=== PATIENT | female | born 1985 | race Asian ===

== ENCOUNTER 2021-07-29 21:57 | Inpatient (IN) | payer OTHER, SELFPAY ==
[~2021-07-29] VITALS: Ht 162.6 cm; Wt 115.7 kg
[2021-07-29] MEDS ORDERED: AMPICILLIN 2,000 MG in NACL 0.9% MINI-BAG PLUS 100 ML IV SCH (23:00)
[2021-07-29] MEDS ORDERED: CARBOPROST 250 MCG/ML AMP IM PRN (23:00)
[2021-07-29] MEDS ORDERED: ONDANSETRON 4 MG/2 ML VIAL IVP PRN (23:00)
[2021-07-29] MEDS ORDERED: OXYTOCIN 20 UNITS in LACTATED RINGERS 1,000 ML IV SCH (23:00)
[2021-07-29] MEDS ORDERED: METHYLERGONOVINE 0.2 MG/ML AMP IM PRN (23:00)
[2021-07-29] MEDS ORDERED: MORPHINE SULFATE 5 MG/ML VIAL IVP PRN (23:00)
[2021-07-29 23:22] LABS: BASOPHILS # (AUTO) 0.1 K/uL (0.00-0.22); BASOPHILS % (AUTO) 0.8 % (0.0-2.0); EOSINOPHILS # (AUTO) 0.3 K/uL (0-0.4); EOSINOPHILS % (AUTO) 1.7 % (0.0-4.0); HEMATOCRIT 41.5 % (36-48); HEMOGLOBIN 13.9 g/dL (12.0-16.0); LYMPHOCYTES # (AUTO) 2.8 K/uL (2.5-16.5); LYMPHOCYTES % (AUTO) 18.2 % (20.5-51.1); MEAN CORPUSCULAR HEMOGLOBIN 28 pg (27-31); MEAN CORPUSCULAR HGB CONC 34 g/dL (33-37); MEAN CORPUSCULAR VOLUME 84.8 fL (80-94); MONOCYTES # (AUTO) 1.2 K/uL (0.8-1.0); MONOCYTES % (AUTO) 7.9 % (1.7-9.3); NEUTROPHILS % (AUTO) 71.4 % (42.2-75.2); PLATELET COUNT (AUTO) 363 K/uL (140-450); RED BLOOD CELL COUNT(AUTO) 4.89 MIL/uL (4.20-5.40); RED CELL DISTRIBUTION WIDTH 14.5 % (11.6-13.7); WHITE BLOOD COUNT (AUTO) 15.4 K/uL (4.8-10.8)
[2021-07-29 23:24] LABS: APPEARANCE,URINE CLEAR (CLEAR); BILIRUBIN,URINE NEGATIVE (NEGATIVE); BLOOD, URINE NEGATIVE (NEGATIVE); COLOR,URINE YELLOW (YELLOW); LEUKOCYTE ESTERASE ,URINE NEGATIVE (NEGATIVE); NITRITE, URINE NEGATIVE (NEGATIVE); PH,URINE 6.5 (5.0-9.0); UGLUCOSE NEGATIVE (NEGATIVE)
[2021-07-29] MEDS: LACTATED RINGERS 1,000 ML IV SCH (23:28)
[2021-07-29] MEDS ORDERED: AMPICILLIN 2,000 MG VIAL ONE (23:29)
[2021-07-29 23:45] LABS: ALBUMIN 2.4 g/dL (3.4-5.0); ANION GAP 13.7 (8-16); CARBON DIOXIDE 23.6 mmol/L (21-32); CREATININE 0.8 mg/dL (0.6-1.3); POTASSIUM 4.3 mmol/L (3.5-5.1); TOTAL BILIRUBIN 0.2 mg/dL (0.0-1.0)
[2021-07-30 00:28] VITALS: BP 128/80
[2021-07-30] MEDS: MISOPROSTOL 25 MCG TAB VG PRN ×2 (01:57→08:10)
[2021-07-30] MEDS ORDERED: AMPICILLIN 1,000 MG VIAL ONE ×6 (03:04→23:34)
[2021-07-30] MEDS: AMPICILLIN 1,000 MG in NACL 0.9% MINI-BAG PLUS 50 ML IV SCH ×3 (03:30→23:50)
--- NOTE | 2021-07-30 07:13 | NUR ---
PATIENT HAS BEEN SCREENED AND CATEGORIZED LOW NUTRITION RISK. PATIENT WILL BE SEEN WITHIN 7 DAYS OF ADMISSION. 08/05/[address]
[2021-07-30] MEDS: LACTATED RINGERS 1,000 ML IV SCH ×3 (08:11→23:35)
[2021-07-31] MEDS: MISOPROSTOL 25 MCG TAB VG PRN ×2 (01:59→08:01)
[2021-07-31] MEDS ORDERED: AMPICILLIN 1,000 MG VIAL ONE ×6 (03:32→23:54)
[2021-07-31] MEDS: AMPICILLIN 1,000 MG in NACL 0.9% MINI-BAG PLUS 50 ML IV SCH ×2 (08:00→11:50)
[2021-07-31] MEDS ORDERED: OXYTOCIN 20 UNITS/LR PREMIX 1,000 ML IV ONE (13:45)
[2021-07-31] MEDS ORDERED: MORPHINE SULFATE 10 MG/ML VIAL ONE (21:02)
[2021-07-31 21:25] VITALS: BP 127/87
[2021-07-31] MEDS ORDERED: ROPIVACAINE 0.2%/NS PREMIX 200 ML EPI ONE (22:37)
[2021-07-31] MEDS ORDERED: ROPIVACAINE 0.2%/NS PREMIX 100 ML EPI SCH (23:05)
[2021-08-01] MEDS ORDERED: AMPICILLIN 1,000 MG VIAL ONE (03:54)
[2021-08-01] MEDS ORDERED: CITRIC ACID/SODIUM CITRATE 30 ML UDC PO SCH (07:18)
[2021-08-01] MEDS ORDERED: LIDOCAINE/EPI MPF 2%1:200000 10 ML VIAL INJ ONE ×2 (07:29→07:55)
[2021-08-01] MEDS ORDERED: MORPHINE PRES FREE 10 MG/10 ML AMP IV ONE (07:44)
[2021-08-01] MEDS ORDERED: DEXAMETHASONE 4 MG/ML VIAL ONE ×3 (07:45→08:00)
[2021-08-01] MEDS ORDERED: ONDANSETRON 4 MG/2 ML VIAL ONE ×2 (07:45→08:25)
[2021-08-01] MEDS ORDERED: METOCLOPRAMIDE 10 MG/2 ML INJ VIAL ONE ×2 (07:45→08:22)
[2021-08-01] MEDS ORDERED: OXYTOCIN 10 UNITS/ML VIAL ONE ×4 (08:00→08:21)
[2021-08-01] MEDS ORDERED: ePHEDrine 50 MG/ML VIAL ONE (08:26)
[2021-08-01] MEDS ORDERED: ONDANSETRON 4 MG/2 ML VIAL IVP PRN ×3 (08:40→08:45)
[2021-08-01] MEDS ORDERED: HYDROmorphone 2 MG TAB PO PRN (08:40)
[2021-08-01] MEDS ORDERED: METHYLERGONOVINE 0.2 MG/ML AMP IM PRN (08:40)
[2021-08-01] MEDS ORDERED: diphenhydrAMINE 50 MG/ML VIAL IVP PRN ×2 (08:40→08:45)
[2021-08-01] MEDS ORDERED: MEPERIDINE 25 MG/ML SYR IVP PRN (08:45)
[2021-08-01] MEDS ORDERED: NALOXONE 0.4 MG/ML VIAL IVP PRN ×3 (08:45)
[2021-08-01] MEDS ORDERED: NALBUPHINE 10 MG/ML AMP IVP PRN (08:45)
[2021-08-01] MEDS ORDERED: HYDROmorphone 1 MG/ML AMP IVP PRN (08:45)
[2021-08-01] MEDS ORDERED: KETOROLAC 30 MG/ML VIAL IM/IVP SCH (12:00)
[2021-08-01] MEDS: KETOROLAC 30 MG/ML VIAL IM/IVP SCH ×2 (12:39→18:03)
[2021-08-01] MEDS ORDERED: OXYTOCIN 20 UNITS/LR PREMIX 1,000 ML IV ONE ×2 (12:50→22:29)
[2021-08-01] MEDS: OXYTOCIN 20 UNITS in LACTATED RINGERS 1,000 ML IV SCH ×2 (13:54→22:32)
[2021-08-02] MEDS: KETOROLAC 30 MG/ML VIAL IM/IVP SCH (00:02)
[2021-08-02] MEDS ORDERED: OXYTOCIN 20 UNITS/LR PREMIX 1,000 ML IV ONE (06:45)
[2021-08-02] MEDS: OXYTOCIN 20 UNITS in LACTATED RINGERS 1,000 ML IV SCH (07:02)
[2021-08-02 08:48] LABS: BASOPHILS # (AUTO) 0.1 K/uL (0.00-0.22); BASOPHILS % (AUTO) 0.8 % (0.0-2.0); EOSINOPHILS # (AUTO) 0.1 K/uL (0-0.4); EOSINOPHILS % (AUTO) 0.9 % (0.0-4.0); HEMATOCRIT 26.7 % (36-48); HEMOGLOBIN 8.8 g/dL (12.0-16.0); LYMPHOCYTES # (AUTO) 3.6 K/uL (2.5-16.5); LYMPHOCYTES % (AUTO) 29.3 % (20.5-51.1); MEAN CORPUSCULAR HEMOGLOBIN 28 pg (27-31); MEAN CORPUSCULAR HGB CONC 33 g/dL (33-37); MONOCYTES # (AUTO) 1.2 K/uL (0.8-1.0); MONOCYTES % (AUTO) 9.5 % (1.7-9.3); NEUTROPHILS # (AUTO) 7.3 K/uL (1.8-7.7); NEUTROPHILS % (AUTO) 59.5 % (42.2-75.2); PLATELET COUNT (AUTO) 281 K/uL (140-450); RED BLOOD CELL COUNT(AUTO) 3.14 MIL/uL (4.20-5.40); RED CELL DISTRIBUTION WIDTH 14.2 % (11.6-13.7); WHITE BLOOD COUNT (AUTO) 12.3 K/uL (4.8-10.8)
[2021-08-02] MEDS: bisacodyL 10 MG SUPP RC SCH (09:30)
[2021-08-02] MEDS: SIMETHICONE 80 MG TAB.CHEW PO PRN ×3 (09:30→23:59)
[2021-08-02] MEDS: DOCUSATE SODIUM 100 MG GELCAP PO PRN (09:30)
[2021-08-02] MEDS: oxyCODONE 5 MG TAB PO PRN (15:30)
[2021-08-02] MEDS: FERROUS SULFATE 325 MG TABEC PO SCH (21:02)
[2021-08-03] MEDS ORDERED: CAMERA MC ONE (02:34)
[2021-08-03] MEDS: oxyCODONE 5 MG TAB PO PRN ×5 (03:13→21:20)
[2021-08-03] MEDS: FERROUS SULFATE 325 MG TABEC PO SCH ×3 (09:13→21:20)
[2021-08-03] MEDS: bisacodyL 10 MG SUPP RC SCH (09:37)
[2021-08-03] MEDS: SIMETHICONE 80 MG TAB.CHEW PO PRN (14:27)
[2021-08-04] MEDS ORDERED: CAMERA MC ONE (00:35)
[2021-08-04] MEDS: oxyCODONE 5 MG TAB PO PRN ×2 (03:13→09:28)
[2021-08-04] MEDS: FERROUS SULFATE 325 MG TABEC PO SCH (08:41)
[2021-08-04] MEDS: DOCUSATE SODIUM 100 MG GELCAP PO PRN (08:41)
[2021-08-04] MEDS: bisacodyL 10 MG SUPP RC SCH (08:45)
== END 2021-08-04 11:50 | disposition home or self-care (01) | DRG 540 ==
LOC: MLD 21:57 → OBSVTOIN 21:57 → MFCC 08-01 09:05
PROVIDERS: ADMIT Obstetrics & Gynecology; ATTEND Obstetrics & Gynecology
PROC: 3E033VJ Introduction of Other Hormone into Peripheral Vein, Percutaneous Approach (ICD-10-PCS; 2021-07-31)
PROC: 10D00Z1 Extraction of Products of Conception, Low, Open Approach (ICD-10-PCS; principal; 2021-08-01 07:00)
DX: O76 Abnormality in fetal heart rate and rhythm complicating labor and delivery (principal); D62 Acute posthemorrhagic anemia; O61.0 Failed medical induction of labor; O99.824 Streptococcus B carrier state complicating childbirth; Z3A.40 40 weeks gestation of pregnancy; Z37.0 Single live birth; Z88.8 Allergy status to other drugs, medicaments and biological substances; Z82.49 Family history of ischemic heart disease and other diseases of the circulatory system; Z20.822 Contact with and (suspected) exposure to COVID-19
CPT/HCPCS: 36415; 51702; 59200; 76815; 80053; 81003; 85025; 86592; 86886; 86900; 86901; J0290; J0690; J1100; J1885; J2001; J2270; J2405; J2590; J2765; J2795; J7060; J7120; Q0092